=== PATIENT | female | born 1970 | race Caucasian/White ===

== ENCOUNTER 2018-10-28 20:43 | Emergency (ER) | payer BC ==
--- OUTSIDE RECORDS SUMMARY | 2018-10-28 20:57 | XMS REPORT | Continuity of Care Document ---
:1970 External Reference #:[id number] Author Name Carissa Red MD Address [address] [place] [address] Care Team Providers Name Role Phone Carissa Red MD Care Team Information Button Maker Unavailable Carissa Red MD Primary Care Physician Unavailable Payers Date Identification Numbers Payment Provider Subscriber Policy Number: [id number] [facility] Kamla Espinal PayID: [id number] [address] [address] [place] [address] Expires: 2016 Policy Number: [id number] [facility] Kamla Espinal Onset: 2013 PayID: [id number] [address] [address] [place] [address] Advance Directives Description No Information Available Problems Date Description Provider Status Onset: 10/18/2010 Lateral epicondylitis Gorge Warren MD Active Onset: 08/19/2011 Epidermoid cyst Brian Donaldson MD Active Note: I&D done for infected cyst right earlobe Onset: 04/10/2012 Lumbar sprain Gorge Warren MD Active Onset: 06/20/2011 Single major depressive episode Clara Rucker FNP Active Onset: 06/20/2011 Irritable bowel syndrome Clara Rucker FNP Active Onset: 06/20/2011 Malaise and fatigue Clara Rucker FNP Active Onset: 06/20/2011 Female stress incontinence Clara Rucker FNP Active Onset: 05/10/2016 Diarrhea Waldemar Donaldson MD Active Onset: 05/10/2016 Tenderness of epigastrium Waldemar Donaldson MD Active Onset: 05/10/2016 Heartburn Waldemar Donaldson MD Active Onset: 07/17/2016 Chronic fatigue syndrome Carissa Red MD Active Onset: 07/17/2016 Spondylolysis Carissa Red MD Active Onset: 11/06/2016 Midline cystocele Reed Marmolejo M.D. Active Onset: 11/06/2016 Herniation of rectum into vagina Reed Marmolejo M.D. Active Onset: 03/20/2017 Spondylolysis Carissa Red MD Active Onset: 04/25/2017 Nausea and vomiting Waldemar Donaldson MD Active Onset: 05/06/2017 Kidney stone Bertha Prado M.D. Active Onset: 05/06/2017 Angiomyolipoma of kidney Bertha Prado M.D. Active Onset: 08/20/2017 Disorder of shoulder Jessica Patiño MD Active Onset: 08/21/2017 Supraspinatus tear Jessica Patiño MD Active Onset: 04/02/2018 Psoriasis with arthropathy Carissa Red MD Active Onset: 04/13/2018 Benign neoplasm of skin of trunk Refugio Marroquin Active M.D. Family History Date Family Member(s) Observation Comments Father Depression Mother Pacemaker Mother Gastroparesis Mother Rheumatoid Arthritis Mother hypoglycemic Children 2 AGE 25 ANXIETY AND IBS, AGE 17 POST CONCUSSION SYNDROME First Son Anxiety First Son Reflux First Daughter Anxiety First Daughter vascualar hypotension First Brother Alcoholism First Brother Drug Addiction First Brother Gastroesophageal Reflux Disease (GERD) Grandmother Breast Cancer Grandmother Stroke Social History Type Date Description Comments Sex Unknown Marital Status Patient is Lives With Children Home Environment Lives With son Diet Patient is on a gluten-free diet Occupation [employer], 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 Tobacco Use Start: Unknown currently smokes 1/2 Pack Daily Smoking Status Reviewed: 10/01/18 currently smokes 1/2 Pack Daily ETOH Use Rarely consumes alcohol Tobacco Use Start: Unknown Heavy tobacco smoker (more than 10 cigarettes/day) Recreational Drug Use Never Used Drugs Allergies, Adverse Reactions, Alerts Date Description Reaction Status Severity Comments 10/18/2010 Doxycycline Active Vomitting 01/12/2015 Gluten Active 05/10/2016 Lemon Active 05/10/2016 [place] Quil Active 10/11/2009 NKDA Inactive 12/04/2012 Lemon rash/hives Inactive 07/25/2014 Codeine Inactive Medications Medication Date Status Form Strength Qnty SIG Indications Ordering Provider Chantix 10/02/19 Active Tablets 0.5mg X 60tab 0.5 mg Teofilo, Starting Month 19 11 & 1 mg s once MD Carissa Ethan X 42 daily days 1-3, 0.5mg twice daily days 4-7, 1mg twice daily on day 8 Fluoxetine HCL 10/02/19 Active Tablets 10mg 30tab 1 tab by Teofilo, 19 s mouth MD Carissa daily Omeprazole 09/26/19 Active Capsules 20mg 60cap [address] s mouth Refugio every HNoemi Amaya. other day Celecoxib 07/17/19 Active Capsules 100mg 180ca 2 tabs Cara, 17 ps by mouth Refugio daily H., MMoniqueD. Cholestyramine 08/16/19 Active Packet 4gm 60uni 1 packet Gene, 14 ts when seamus Berry MD,FACS fatty meal Dicyclomine HCL 06/11/20 Active Capsules 10mg 540ca 1-2 cap Cara, 11 ps by mouth Refugio three H., MMoniqueDMonique times a day after meals as needed Gabapentin Active Tablets 600mg 180ta 1 tab Teofilo, 00 bs one MD Carissa times daily Xanax Active Tablets 1mg 1 tab po Unknown 00 qd prn Methylprednisol Active Tablets 4mg as Unknown one 00 directed prn back pain Fluocinonide-E Active Cream 0.05% 30gm apply to Unknown 00 affected area as directed prn Oxycodone-Aceta Active Tablets 5-325mg 90tab 1 by Teofilo, minophen 00 s allen Ferrer MD every 8 hours as needed pain Folic Acid Active Tablets 1mg 1tab Rayancha, 00 daily MD Nirali Methotrexate Active Tablets 2.5mg 6tabs Boucher, 00 every Humble Brady y Mayriguilherme DS 04/22/20 Hx Tablets 800-160mg 20tab 1 by Cara, 18 - s mouth Christopher 06/11/20 twice a H., Dennis 18 day Diflucan 04/20/20 Hx Tablets 150mg 7tabs 1 by Cara 18 - mouth Christopher 06/11/20 every H.Noemi. 18 day Baclofen 04/02/20 Hx Tablets 5mg 90tab 1 tab by Hai, 18 - s mouth Jil, 06/25/20 three MS, DIRECTOR OF MARKET INTELLIGENCE-C, 18 times a CNM day Sulfamethoxazol 10/02/19 Hx Tablets 800-160mg 10tab 1 by Cara e/Trimethoprim 18 - s mouth Christopher DS 04/02/20 twice a H., Dennis 18 day Chantix 07/09/19 Hx Tablets 0.5mg X 1tabs use as Cara Starting Month 18 - 11 & 1 mg directed Lucophmelba Ethan 08/20/19 X 42 H., SofiD. 18 Dulcolax 04/25/20 Hx Tablets 5mg 4tabs 4 R19.7 Waldemar Donaldson 17 - DR tablets 08/20/19 taken a 18 8pm the day before the procedur e Citroma 04/25/20 Hx Solution 1.745GM/3 1unit 1 bottle R19.7 Waldemar Donaldson 17 - 0ML s by mouth 08/20/19 once 18 Clindamycin 04/10/20 Hx Lotion 1% 60ml twice a Cara Phosphate 17 - day Lucopher 04/02/20 apply HDennis Amaya 18 topicall y to the affected areas Oxybutynin 03/20/20 Hx Tablets 5mg 30tab 1 by Teofilo, Chloride ER 17 - ER 24HR s mouth MD Carissa Unknown every day Enoxaparin 02/19/20 Hx Solution 40mg/0.4M 12ml 40mg / Cara, Sodium 17 - L 0.4ml Refugio Unknown subq HDennis Amaya daily Ibuprofen 02/04/20 Hx Tablets 800mg 60tab 1 by Cara 17 - s mouth Christopher Unknown every 6 H.Dennis hours as needed for pain use as first line pain control Zantac 01/10/20 Hx Tablets 150mg 60tab 1 by Cara 17 - s mouth Refugio Unknown twice a H., M.D. day Fluoxetine HCL 10/09/19 Hx Tablets 10mg 90tab 1 tab po Teofilo, 17 - s Daily MD Carissa Unknown Xifaxan 09/05/19 Hx Tablets 550mg 42tab 1 tab by K58.0 Waldemar Donaldson 17 - s allen JUDGE 12/19/19 three 17 times a day Omeprazole 08/29/19 Hx Capsules 40mg 180ca 1 by Cara 17 - DR ps mouth Refugio Unknown twice a H., M.D. day Vitamin D3 07/17/19 Hx Capsules 2000Unit 2 PO Teofilo, Super Strength 17 - daily MD Carissa Unknown Percocet 05/27/20 Hx Tablets 5-325mg 40tab take 1 Teofilo, 16 - s tablets MD Carissa 12/19/19 every 17 six hours as needed for pain Zofran 05/10/20 Hx Tablets 4mg 30tab 1 by R19.7 Waldemar Donaldson 16 - s mouth Unknown every day Zantac 150 05/10/20 Hx Tablets 150mg 30tab 1 cap by R10.816 Waldemar Donaldson, Maximum 16 - s mouth Strength Unknown every day Colestid 05/10/20 Hx Tablets 1gm 90tab 1 tab by Waldemar Donaldson 16 - s mouth Unknown three times a day meals Paregoric 04/18/20 Hx Tincture 2mg/5ML 473ml 5ml po Cara 16 - tid prn Refugio Unknown H., MMoniqueD. Detrol LA 03/11/20 Hx Caps ER 4mg 90cap 1 by Teofilo, 16 - 24HR s mouth MD Carissa 03/20/20 every 17 day Ibuprofen 03/11/20 Hx Tablets 800mg 60tab takes 2 Teofilo, 16 - s tabs by MD Carissa Unknown mouth daily prn Prozac 02/22/20 Hx Capsules 10mg 60cap take 1 Teofilo, 16 - s pill MD Carissa 02/22/20 each day 16 Metoprolol 02/22/20 Hx Tablets 25mg 180ta 1 by Teofilo, Tartrate 16 - bs mouth a MD Carissa Unknown day Fluoxetine HCL 02/22/20 Hx Tablets 10mg 30tab 1 po qod Teofilo, 16 - s MD Carissa 07/19/19 17 Hyoscyamine 12/07/19 Hx Tablets 0.125mg 60tab take one Moheimani, Sulfate 16 - s to two Christopher Unknown times a H., M.D. day as needed Hyoscyamine 10/12/19 Hx Tablets 0.125mg 60tab Take one Moheimani, Sulfate 16 - s to two Christopher 02/22/20 times a H., M.D. 16 day as needed Cyclobenzaprine 07/12/19 Hx Tablets 10mg 60tab 1 by Cruz, PABLO 15 - s mouth Bear Perry, 07/17/19 three EARL JUDGE 17 times a day as needed muscle spasms Cholestyramine 08/11/19 Hx Powder 100gm one cap Cara 14 - or Christopher 08/16/19 heaping Dennis Pedro 14 teaspoon full as directed in fluid once to twice a day when you have diarrhea . Nabumetone 05/07/20 Hx Tablets 750mg 60tab take 1 Kelvin, 12 - s tablet Gorge A., Unknown by mouth 2 times a day Cephalexin 08/19/19 Hx Capsules 500mg 20cap 1 tab po Brian Donaldson 12 - s qid pc MD Toñito Unknown Alprazolam 06/11/20 Hx Tablets 0.5mg 90tab 1 po tid Smith 11 - s prn Lucretia, 02/22/20 16 Oxycodone/Aceta 03/29/20 Hx Tablets 5-325 10tab one q4h Brian Donaldson minophen 11 - s prn carol Sibley MD Unknown Nabumetone 10/19/19 Hx Tablets 750mg 60tab take 1 Kelvin, 11 - s tablet Gorge A., Unknown by mouth 2 times a day Detrol LA Hx Caps ER 4mg 1 po qd Vandana, 00 - 24HR Nbarocky Farah, 10/18/19 Dennis, FACC 11 Zoloft Hx Tablets 50mg 1 po qd Vandana 00 - Nba MMonique, 10/18/19 Dennis, [facility] 11 Prevacid Hx Capsules 30mg 1 po qd Vandana 00 - DR Nba Farah, 10/18/19 Dennis, [facility] 11 Dicyclomine HCL Hx Capsules 10mg as prn Unknown 00 - Unknown Vitamin C Hx Tablets 1000mg 1 po qd Unknown 00 - Unknown Calcium + D Hx Tablets 600-200mg po qd Unknown - -Unit Unknown Ibuprofen Hx Tablets 800mg 20tab po qd Unknown 00 - s prn 07/12/19 15 Omeprazole Hx Capsules 40mg 60cap 1 po qd Unknown - s Unknown Vesicare Hx Tablets 5mg 30tab 1 po qd Smith - s Lucretia, 02/22/20 16 Ranitidine Acid Hx Tablets 75mg take one Unknown [employer] Specialist 00 - tablet 08/29/19 by mouth 17 bid Arava Hx Tablets 10mg One a Unknown 00 - day 08/20/19 18 Methotrexate Hx Tablets 2.5mg 5 pills Boucher, 00 - PO Q Humble JUDGE 06/25/20Frinesda 18 y Probiotic Hx Capsules 1 by Unknown 00 - mouth 06/11/20 every 18 day Medications Administered in Office Medication Date Status Form Strength Qnty SIG Indications Ordering Provider Methylprednisolo 09/05 Administered Injection Cerrato, Cyndi Encinas (Depomedrol) RPAC 80mg injection Depomedrol 04/26 Administered Injection Lawsing, 40mg/1cc Bear Perry (methylprednisol , [facility] one acetate) Depomedrol 04/26 Administered Injection Cerrato, 40mg/1cc Cyndi Encinas (methylprednisol RPAC one acetate) Depomedrol 04/26 Administered Injection Cerrato, 40mg/1cc Cyndi Encinas, (methylprednisol RPAC one acetate) Depomedrol 09/10 Administered Injection Cerrato, 40mg/1cc Cyndi Encinas (methylprednisol RPAC one acetate) Depomedrol 05/07 Administered Injection Moheimani, 40mg/1cc /Ulises Huff (methylprednisol H., M.D. one acetate) Depomedrol 12/04 Administered Injection DavidEloy 40mg/1cc /Ulises Pedro MD (methylprednisol one acetate) Immunizations CPT Code Status Date Vaccine Lot # [id number] Given 10/01/2018 Tdap injection [id number] Given 04/02/2018 Pneumococcal Conjugate Vaccine 13 Valent For [id number] Intramuscular Use Vital Signs Date Vital Result Comment 10/01/2018 8:40am BP Systolic Sitting Left Arm 104 mmHg BP Diastolic Sitting Left Arm 74 mmHg Body Temperature 97.8 F Heart Rate 87 /min Respiratory Rate 16 /min Height 69 inches 5'9" Weight 203.00 lb BMI (Body Mass Index) 30.0 kg/m2 BSA (Body Surface Area) 2.08 m2 [place] body weight in kilograms 66 kg O2 % BldC Oximetry 98 % Ra 06/11/2018 4:12pm BP Systolic Sitting Right Arm 126 mmHg BP Diastolic Sitting Right Arm 76 mmHg Body Temperature 98.6 F Heart Rate 73 /min Respiratory Rate 16 /min Height 69 inches 5'9" Weight 196.00 lb per pt BMI (Body Mass Index) 28.9 kg/m2 BSA (Body Surface Area) 2.05 m2 [place] body weight in kilograms 66 kg O2 % BldC Oximetry 96 % Ra 04/02/2018 8:32am BP Systolic 130 mmHg Fabrice 118/82 BP Diastolic 92 mmHg Fabrice 118/82 Body Temperature 98.1 F Heart Rate 89 /min Respiratory Rate 18 /min Height 69 inches 5'9" Weight 195.00 lb BMI (Body Mass Index) 28.8 kg/m2 BSA (Body Surface Area) 2.04 m2 [place] body weight in kilograms 66 kg O2 % BldC Oximetry 98 % 10/01/2017 1:02pm BP Systolic 125 mmHg BP Diastolic 80 mmHg Body Temperature 72.0 F Heart Rate 973 /min Height 69 inches 5'9" Weight 184.00 lb BMI (Body Mass Index) 27.2 kg/m2 BSA (Body Surface Area) 1.99 m2 [place] body weight in kilograms 66 kg Pain Level 5 09/05/2017 2:17pm BP Systolic Sitting Left Arm 123 mmHg BP Diastolic Sitting Left Arm 74 mmHg Heart Rate 91 /min Height 69 inches 5'9" Weight 189.00 lb BMI (Body Mass Index) 27.9 kg/m2 BSA (Body Surface Area) 2.02 m2 [place] body weight in kilograms 66 kg 08/20/2017 9:21am BP Systolic Sitting Right Arm 109 mmHg BP Diastolic Sitting Right Arm 72 mmHg Heart Rate 79 /min Height 69 inches 5'9" Weight 198.00 lb BMI (Body Mass Index) 29.2 kg/m2 BSA (Body Surface Area) 2.06 m2 [place] body weight in kilograms 66 kg 05/06/2017 3:54pm BP Systolic 138 mmHg BP Diastolic 85 mmHg Body Temperature 97.5 F Heart Rate 85 /min Respiratory Rate 16 /min Height 69 inches 5'9" Weight 218.00 lb BMI (Body Mass Index) 32.2 kg/m2 BSA (Body Surface Area) 2.14 m2 [place] body weight in kilograms 66 kg O2 % BldC Oximetry 98 % Pain Level 0 04/25/2017 3:52pm BP Systolic Sitting Left Arm 124 mmHg BP Diastolic Sitting Left Arm 78 mmHg Heart Rate 72 /min Respiratory Rate 16 /min Height 69 inches 5'9" Weight 215.00 lb BMI (Body Mass Index) 31.7 kg/m2 BSA (Body Surface Area) 2.13 m2 [place] body weight in kilograms 66 kg 03/20/2017 1:53pm BP Systolic Lying Down Resting Right Arm 128 mmHg BP Diastolic Lying Down Resting Right Arm 74 mmHg Heart Rate 84 /min Height 69 inches 5'9" Weight 210.00 lb BMI (Body Mass Index) 31.0 kg/m2 BSA (Body Surface Area) 2.11 m2 [place] body weight in kilograms 66 kg 11/06/2016 2:56pm BP Systolic 130 mmHg BP Diastolic 84 mmHg Height 69 inches 5'9" Weight 212.00 lb BMI (Body Mass Index) 31.3 kg/m2 BSA (Body Surface Area) 2.12 m2 [place] body weight in kilograms 66 kg 09/04/2016 3:39pm BP Systolic Sitting Left Arm 134 mmHg BP Diastolic Sitting Left Arm 86 mmHg Heart Rate 82 /min Respiratory Rate 16 /min Height 69 inches 5'9" Weight 224.00 lb BMI (Body Mass Index) 33.1 kg/m2 BSA (Body Surface Area) 2.17 m2 08/28/2016 1:00pm BP Systolic 120 mmHg BP Diastolic 84 mmHg Height 69 inches 5'9" Weight 219.00 lb BMI (Body Mass Index) 32.3 kg/m2 BSA (Body Surface Area) 2.15 m2 [place] body weight in kilograms 66 kg 08/23/2016 1:58pm BP Systolic Sitting Right Arm 128 mmHg BP Diastolic Sitting Right Arm 76 mmHg Height 67 inches 5'7" Weight 223.25 lb BMI (Body Mass Index) 35.0 kg/m2 BSA (Body Surface Area) 2.12 m2 07/17/2016 11:20am BP Systolic 142 mmHg BP Diastolic 94 mmHg Heart Rate 68 /min Height 67 inches 5'7" Weight 226.00 lb BMI (Body Mass Index) 35.4 kg/m2 BSA (Body Surface Area) 2.13 m2 05/10/2016 8:27am BP Systolic Sitting Left Arm 118 mmHg BP Diastolic Sitting Left Arm 86 mmHg Heart Rate 81 /min Respiratory Rate 16 /min Height 67 inches 5'7" Weight 224.00 lb BMI (Body Mass Index) 35.1 kg/m2 BSA (Body Surface Area) 2.12 m2 02/22/2016 1:35pm BP Systolic Sitting Right Arm 122 mmHg BP Diastolic Sitting Right Arm 70 mmHg Height 67 inches 5'7" Weight 223.00 lb BMI (Body Mass Index) 34.9 kg/m2 BSA (Body Surface Area) 2.12 m2 12/27/2014 2:13pm BP Systolic Sitting Left Arm 109 mmHg BP Diastolic Sitting Left Arm 71 mmHg Heart Rate 83 /min Height 67 inches 5'7" Weight 217.00 lb BMI (Body Mass Index) 34.0 kg/m2 BSA (Body Surface Area) 2.09 m2 09/10/2013 9:13am BP Systolic Sitting Right Arm 120 mmHg BP Diastolic Sitting Right Arm 82 mmHg Height 69 inches 5'9" Weight 212.00 lb per patient BMI (Body Mass Index) 31.3 kg/m2 BSA (Body Surface Area) 2.12 m2 12/04/2012 2:17pm BP Systolic Sitting Right Arm 117 mmHg BP Diastolic Sitting Right Arm 72 mmHg Height 69 inches 5'9" Weight 208.00 lb BMI (Body Mass Index) 30.7 kg/m2 BSA (Body Surface Area) 2.10 m2 04/10/2012 2:28pm BP Systolic Sitting Right Arm 118 mmHg BP Diastolic Sitting Right Arm 68 mmHg Height 69 inches 5'9" Weight 208.00 lb BMI (Body Mass Index) 30.7 kg/m2 11/26/2011 11:12am BP Systolic 122 mmHg BP Diastolic 72 mmHg Height 69 inches 5'9" Weight 214.00 lb 11/01/2011 9:41am BP Systolic 102 mmHg BP Diastolic 78 mmHg Height 69 inches 5'9" Weight 213.00 lb 10/15/2011 11:39am BP Systolic 124 mmHg BP Diastolic 68 mmHg Body Temperature 98.8 F Height 69 inches 5'9" Weight 212.00 lb 06/11/2011 11:31am BP Systolic 104 mmHg BP Diastolic 86 mmHg Height 69 inches 5'9" Weight 200.00 lb 03/29/2011 2:28pm Body Temperature 97.6 F Height 69.5 inches 5'9.50" Weight 195.00 lb BMI (Body Mass Index) 28.4 kg/m2 10/18/2010 10:31am Height 69.5 inches 5'9.50" Weight 200.00 lb BMI (Body Mass Index) 29.1 kg/m2 Results Test Date Facility Test Result H/L Range Note Laboratory test 06/22/2018 [facility] Thyroid Stim 1.87 uIU/mL N 0.30-4.[address] [place] [address] [phone] Free T4 0.92 ng/dL N 0.76-1.46 Vitamin B12 408 pg/mL N 193-986 Laboratory test 05/29/2018 [facility] Vitamin 32.7 30.0-100.0 2, [address] D,25-Hydroxy ng/[place] [address] [phone] LDL Cholesterol 05/29/2018 [facility] Cholesterol 145 <200 [address] mg/[place] [address] [phone] Triglycerides 72 mg/dL <150 5 HDL Cholesterol 64 mg/dL >40 6 LDL-Cholesterol 67 mg/dL < 100 7 Glycohemoglobin A1c 05/29/2018 [facility] Glycohemoglobin 5.4 % N 4.2-6.[address] (A1c) [place] [address] [phone] eAG 108 mg/dL Comprehensive Metabolic 05/29/2018 [facility] Glucose 93 mg/dL N 74-[address] [place] [address] [phone] BUN 19 mg/dL High 7-18 Creatinine 0.8 mg/dL N 0.6-1.3 Glom Filtration Rate, Estimate >60 mL/min >60 If >60 mL/min >60 9 BUN/Creat 23.7 ratio Sodium 139 mmol/L N 136-145 Potassium 4.8 mmol/L N 3.5-5.1 Chloride 107 mmol/L N 98-107 Carbon Dioxide 28 mmol/L N 21-32 Anion Gap 4 mEq/L Low 8-16 Calcium 8.0 mg/dL Low 8.5-10.1 Total Protein 7.2 g/dL N 6.4-8.2 Albumin 3.4 g/dL N 3.4-5.0 Globulin 3.8 g/dL N 1.9-4.3 Alb/Glob 0.9 ratio Bilirubin,Total 0.5 mg/dL N 0.2-1.0 Sgot/Ast 11 U/L Low 15-37 10 SGPT/Alt 25 U/L N 12-78 Alkaline Phosphatase 61 U/L N 45-117 CBC W/Automated 05/29/2018 [facility] White Blood 11.0 K/uL High 3.1-10.[address] [place] [address] [phone] Red Blood Count 4.78 M/uL N 3.90-5.40 Hemoglobin 15.2 gm/dL N 11.6-15.8 Hematocrit 46.3 % High 36.0-46.1 Mean Cell Volume 96.9 fl N 80.9-99.0 Mean Corpuscular HGB 31.8 pg N 25.9-32.7 Mean Corpuscular HGB Conc 32.8 g/dL N 30.8-34.3 Platelet Count 305 K/uL N 155-360 Red Cell Distri Width SD 49.0 fl High 3-47 Red Cell Distri Width %CV 14.3 % N 11.7-14.4 Mean Platelet Volume 10.4 fL N 8.9-12.4 Neut% 74.7 % High 40.4-72.8 Lymph % 18.0 % Low 20.0-42.0 [place] % 5.5 % N 4.3-13.2 Eo% 1.5 % N 0.0-6.6 Bas% 0.3 % N 0.0-1.1 Neut# 8.23 K/uL High 1.8-7.0 Lymph # 1.98 K/uL N 1.0-4.0 [place] # 0.61 K/uL N 0.3-0.9 Eos # 0.16 K/uL N 0.0-0.5 Baso # 0.03 K/uL N 0.0-0.1 Slide Review 05/29/2018 [facility] Slide Review (SEE NOTE) [address] [place] [address] [phone] Vasoactive 05/12/2017 [facility] Vasoactive 20.7 pg/mL 0.0-5 12, [address] Intestinal 8.8 [place] [address] Polypept [phone] Basic Metabolic 05/12/2017 [facility] Glucose 82 mg/dL N 74-[address] [place] [address] [phone] BUN 13 mg/dL N 7-18 Creatinine 0.9 mg/dL N 0.6-1.3 Glom Filtration Rate, Estimate >60 mL/min >60 If >60 mL/min >60 14 BUN/Creat 14.4 ratio Sodium 139 mmol/L N 136-145 Potassium 4.0 mmol/L N 3.5-5.1 Chloride 106 mmol/L N 98-107 Carbon Dioxide 27 mmol/L N 21-32 Anion Gap 6 mEq/L Low 8-16 Calcium 9.2 mg/dL N 8.5-10.1 5-Hiaa,Quant 24 HR 05/11/2017 [facility] 5-Hiaa, Urine 3.8 mg/L Undefined Urine [address] [place] [address] [phone] 5-Hiaa, Urine, 24 HR 3.7 mg/24hr 0.0-14.9 15 Laboratory test 03/25/2017 [facility] Carbohydrate 7.0 U/mL 0-35 16, [address] Antigen 19-9 [place] [address] [phone] Cancer Antigen (CA) 125 10.4 U/mL 0.0-38.1 18 Cea 2.7 ng/mL 19 Xray 02/12/2017 [facility] - Radiology Venous Doppler started hep [address] Lower [place] [address] Left [phone] Laboratory test 05/13/2016 [facility] C-Reactive 3.48 mg/L N <3.0 [address] Protein,[place] [address] [phone] Sedimentation Rate 2 mm/hr N 0-20 Laboratory test 05/12/2016 [facility] Pancreatic 298.0 ug/g N >200 [address] Elastase (Pe-1) [place] [address] [phone] Calprotectin, Fecal 49 ug/g N 0-120 22 Lactoferrin, Stool Quant 5.54 ug/mL(g) N 0.00-7.24 23 Laboratory test 05/12/2016 [facility] C. Difficile NEGATIVE FOR [address] Toxin A/B C. <[place] [address] NOTE> [phone] Ova & Parasite 05/12/2016 [facility] Parasite NO OVA AND [address] Concentrate Exam BHARATI <[place] [address] NOTE> [phone] Permanent Trichrome Stain NO OVA OR PARASI <SEE NOTE> 26 Cryptosporidium by Dfa NEGATIVE for Cry <SEE NOTE> 27 Stool Culture 05/12/2016 [facility] Stool Culture NO ENTERIC PATHO [address] <SEE NOTE> [place] [address] [phone] . ................ <SEE NOTE> N 29 Note: INCLUDES TESTING <SEE NOTE> N 30 . PLESIOMONAS, CAM <SEE NOTE> N 31 . ................ <SEE NOTE> N 32 . YERSINIA AND VIB <SEE NOTE> N 33 . SHOULD BE REQUES <SEE NOTE> N 34 Shiga Toxin 1 Antigen SHIGA TOXIN 1 NO <SEE NOTE> 35 Shiga Toxin 2 Antigen SHIGA TOXIN 2 NO <SEE NOTE> 36 Fecal Fat, Qualitative 05/12/2016 [facility] Fats, Neutral Normal N . [address] [place] [address] [phone] Fats, Total Normal N . 38 CBS W/Automated 02/22/2016 [facility] White Blood 11.4 K/uL High 3.1-10.7 [address] [place] [address] [phone] Red Blood Count 4.89 M/uL N 3.90-5.40 Hemoglobin 15.1 gm/dL N 11.6-15.8 Hematocrit 45.1 % N 36.0-46.1 Mean Cell Volume 92.2 fl N 80.9-99.0 Mean Corpuscular HGB 30.9 pg N 25.9-32.7 Mean Corpuscular HGB Conc 33.5 g/dL N 30.8-34.3 Platelet Count 339 K/uL N 155-360 Red Cell Distri Width SD 45.0 fl N 3-47 Red Cell Distri Width %CV 13.5 % N 11.7-14.4 Mean Platelet Volume 11.9 fL N 8.9-12.4 Neut% 66.5 % N 40.4-72.8 Lymph % 24.1 % N 17.0-46.1 [place] % 7.3 % N 4.3-13.2 Eo% 1.8 % N 0.0-6.6 Bas% 0.3 % N 0.0-1.1 Neut# 7.59 K/uL High 1.8-7.0 Lymph # 2.75 K/uL N 1.8-7.0 [place] # 0.83 K/uL N 0.3-0.9 Eos # 0.20 K/uL N 0.0-0.5 Baso # 0.03 K/uL N 0.0-0.1 @EMR Pat Id: [id number] @[facility] Req #: [id number] Slide Review 02/22/2016 [facility] Slide Review . N [address] [place], [place] [address] [phone] @EMR Pat Id: [id number] @[facility] Req #: [id number] Iron-Tibc-%Sat 02/22/2016 [facility] Serum Iron 50 g/dL N 50-170 [address] [place] [address] [phone] Total Iron Binding Capacity 312 g/dL N 250-450 Transferrin %Saturation 16 % N 12-57 @EMR Pat Id: [id number] @[facility] Req #: [id number] Is Patient Fasting? Unknown Ferritin 02/22/2016 [facility] Ferritin 67 ng/mL N 8-[address] [place] [address] [phone] @[facility] Pat Id: [id number] @[facility] Req #: [id number] Is Patient Fasting? Unknown Thyroid Stim 02/22/2016 [facility] Thyroid Stim 1.70 uIU/mL N 0.30-4.[address] [place] [address] [phone] @[facility] Pat Id: [id number] @[facility] Req #: [id number] Is Patient Fasting? Unknown Free T4 02/22/2016 [facility] Free T4 1.09 ng/dL N 0.76-1.[address] [place] [place] [address] [phone] @[facility] Pat Id: [id number] @[facility] Req #: [id number] Is Patient Fasting? Unknown Rheumatoid 02/22/2016 [facility] Rheumatoid < 10.0 N 0.0-15.0 Factor Screen [address] Factor Screen IU/[place] [address] [phone] @[facility] Pat Id: [id number] @[facility] Req #: [id number] Is Patient Fasting? Unknown Vitamin 02/22/2016 [facility] Vitamin 32.3 N 30.0-100.0 41 D,25-Hydroxy [address] D,25-Hydroxy ng/[place] [address] [phone] @[facility] Pat Id: [id number] @[facility] Req #: [id number] [facility] Igg/Iga 02/22/2016 [facility] Igg/Iga 8 units N 0-19 [address] [place] [address] [phone] @[facility] Pat Id: [id number] @[facility] Req #: [id number] Anti-Nuclear 02/22/2016 [facility] Anti-Nuclear Negative N Negative [address] Antibodies AU/[place] [address] Direct [phone] @[facility] Pat Id: [id number] @[facility] Req #: [id number] Comprehensive Metabolic 11/28/2015 [facility] Glucose 99 mg/dL 74-106 Panel [address] [place] [address] [phone] BUN 16 mg/dL 7-18 Creatinine 0.9 mg/dL 0.6-1.3 Glom Filtration Rate, Estimate >60 mL/min >60 If >60 mL/min >60 44 BUN/Creat 17.7 ratio Sodium 137 mmol/L 136-145 Potassium 3.9 mmol/L 3.5-5.1 Chloride 106 mmol/L 98-107 Carbon Dioxide 25 mmol/L 21-32 Anion Gap 6 mEq/L Low 8-16 Calcium 7.6 mg/dL Low 8.5-10.1 Total Protein 6.8 g/dL 6.4-8.2 Albumin 3.4 g/dL 3.4-5.0 Globulin 3.4 g/dL 1.9-4.3 Alb/Glob 1.0 ratio Bilirubin,Total 0.4 mg/dL 0.2-1.0 Sgot/Ast 12 U/L Low 15-37 45 SGPT/Alt 24 U/L 12-78 Alkaline Phosphatase 57 U/L 45-117 Laboratory test 11/28/2015 [facility] Sedimentation Rate 10 mm/hr 0-20 finding [address] [place] [address] [phone] Vitamin B12 425 pg/mL [phone] 46 C-Reactive Protein,Quant 5.2 mg/L High <3.0 H Pylori, Igm, 09/20/2015 [facility] Helicobacter <0.9 U/mL 0.0-0.8 47 Igg, Iga AB 134 [facility] P[facility], [place] [address] [phone] Helicobacter Pylori, Iga Abs < 9.0 units 0.0-8.9 48 Helicobacter Pylori, Igm Abs < 9.0 units 0.0-8.9 49 Laboratory test 08/16/2015 [facility] Gallbladder See Note 50 finding [address] [place] [address] [phone] Laboratory test 08/11/2015 N2N/CCD Import Miscellaneous Test Test(s) finding Comment added Laboratory test 08/11/2015 N2N/CCD Import Alanine 23 12-7 finding Aminotransferase 8 (Alt/SGPT) Albumin 3.5 3.4-5.0 Albumin/Globulin Ratio 1.0 Alkaline Phosphatase 61 45-117 Anion Gap 5 Low 8-16 Aspartate Amino Transf (Ast/Sgot) 9 Low 15-37 BUN/Creatinine Ratio 17.5 Basophils # (Auto) 0.03 0.0-0.1 Basophils (%) (Auto) 0.2 0.0-1.1 Blood Urea Nitrogen 14 7-18 Calcium Level 7.8 Low 8.5-10.1 Carbon Dioxide Level 26 21-32 Chloride Level 107 98-107 Creatinine 0.8 0.6-1.3 Eosinophils # (Auto) 0.16 0.0-0.5 Eosinophils (%) (Auto) 1.2 0.0-6.6 Globulin 3.5 1.9-4.3 Glucose Screen 96 74-106 Hematocrit 45.5 36.0-46.1 Hemoglobin 15.4 11.6-15.8 Lipase 132 73-393 Lymphocytes # (Auto) 2.97 1.8-7.0 Lymphocytes (%) (Auto) 22.1 17.0-46.1 Manual Slide Review (Hematology) . Mean Corpuscular Hemoglobin 31.2 25.9-32.7 Mean Corpuscular Hemoglobin Concent 33.8 30.8-34.3 Mean Corpuscular Volume 92.1 80.9-99.0 Mean Platelet Volume 11.5 8.9-12.4 Monocytes # (Auto) 0.95 High 0.3-0.9 Monocytes (%) (Auto) 7.1 4.3-13.2 Neutrophils # (Auto) 9.31 High 1.8-7.0 Neutrophils (%) (Auto) 69.4 40.4-72.8 Platelet Count 304 155-360 Potassium Level 4.1 3.5-5.1 RDW Coefficient of Variation 13.5 11.7-14.4 Red Blood Count 4.94 3.90-5.40 Red Cell Distribution Width 44.7 3-47 Sodium Level 138 136-145 Total Bilirubin 0.2 0.2-1.0 Total Creatine Kinase 64 26-192 Total Protein 7.0 6.4-8.2 White Blood Count 13.4 High 3.1-10.7 Laboratory test finding 05/16/2015 N2N/CCD Import Anti-Double Strand Dna 2 0-9 Antibody C-Reactive Protein, Quantitative 6.6 High <3.0 Erythrocyte Sedimentation Rate 4 0-20 Estimated Average Glucose (eAG) 111 Hemoglobin A1c 5.5 4.2-6.3 Rheumatoid Factor 8.0 0.0-13.9 Laboratory test 04/07/2015 [facility] Eyelid BX See Note 51, 52 finding [address] [place] [address] [phone] Laboratory test 11/25/2013 [facility] Lyme AB/Total < 0.91 0.[address] Immunoglobulins index -0.9 [place] [address] 0 [phone] Sedimentation Rate 6 mm/hr 0-20 Rheumatoid Factor Screen NEGATIVE Negative Systemic Lupus 11/25/2013 [facility] Ra Latex 7.4 IU/mL 0.0-13.9 Erythem. Profil [address] [place] [address] [phone] Anti-Dna Antibody ([place]) 2 IU/mL 0-9 54 SM Antibody <0.2 AI 0.0-0.9 IMPLEMENTATION ANALYST Antibody <0.2 AI 0.0-0.9 Sjogrens Antibodies (Ssa) <0.2 AI 0.0-0.9 Antichromatin Antibodies <0.2 AI 0.0-0.9 Sjogrens Antibodies (SSB) <0.2 AI 0.0-0.9 Laboratory test 11/25/2013 [facility] C-Reactive < 2.9 0.0-4.9 finding 134 [facility] Protein,Quant mg/[place] [address] [phone] Comprehensive 01/01/2013 [facility] Glucose 88 mg/dL 76-115 Metabolic Panel [address] [place], [place] [id number] [phone] BUN 16 mg/dL 5-23 Creatinine 0.9 mg/dL 0.5-1.4 Glom Filtration Rate, Estimate >60 mL/min >60 If >60 mL/min >60 55 BUN/Creat 17.7 ratio Sodium 140 mmol/L 136-145 Potassium 3.8 mmol/L 3.5-5.1 Chloride 106 mmol/L 98-107 Carbon Dioxide 23 mEq/L 18-29 Anion Gap 15 mEq/L 8-16 Calcium 8.0 mg/dL Low 8.5-10.1 Total Protein 7.2 g/dL 6.3-8.0 Albumin 3.6 g/dL 3.5-5.0 Globulin 3.6 g/dL 1.9-4.3 Alb/Glob 1.0 ratio Bilirubin,Total 0.4 mg/dL 0.2-1.2 Sgot/Ast 8 U/L Low 16-40 SGPT/Alt 23 U/L Low 30-65 Alkaline Phosphatase 68 U/L 50-136 Laboratory test 01/01/2013 [facility] Thyroid Stim 3.06 uIU/mL 0.49-4.[address] [place] [address] [phone] Free T4 1.02 ng/dL 0.71-1.85 C-Reactive Protein,Quant < 2.9 mg/L 0.0-4.9 Systemic Lupus 01/01/2013 [facility] Ra Latex 4.3 IU/mL 0.0-13.9 Erythem. Profil [address] [place] [address] [phone] Anti-Dna Antibody ([place]) <1 IU/mL 0-9 56 SM Antibody <0.2 AI 0.0-0.9 IMPLEMENTATION ANALYST Antibody <0.2 AI 0.0-0.9 Sjogrens Antibodies (Ssa) <0.2 AI 0.0-0.9 Antichromatin Antibodies <0.2 AI 0.0-0.9 Sjogrens Antibodies (SSB) <0.2 AI 0.0-0.9 57 CBC 01/01/2013 [facility] White Blood Count 13.3 K/uL High 3.1-10.[address] [place] [address] [phone] Red Blood Count 4.97 M/uL 3.90-5.40 Hemoglobin 15.4 gm/dL 11.6-15.8 Hematocrit 45.8 % 36.0-46.1 Mean Cell Volume 92.2 fl 80.9-99.0 Mean Corpuscular HGB 31.0 pg 25.9-32.7 Mean Corpuscular HGB Conc 33.6 g/dL 30.8-34.3 Platelet Count 334 K/uL 155-360 Red Cell Distri Width %CV 13.5 % 11.7-14.4 Mean Platelet Volume 11.6 fL 8.9-12.4 Laboratory test 01/01/2013 [facility] Sedimentation Rate 5 mm/hr 0-20 finding 134 [place] [address] [phone] Rheumatoid Factor Screen NEGATIVE Negative Laboratory test finding 10/22/2012 [facility] BUN 18 mg/dL 5-23 [address] [place], [place] [address] [phone] Creatinine 0.9 mg/dL 0.5-1.4 Laboratory test 01/20/2012 [facility] Hla B27 Negative () 58 finding [phone] Laboratory test 01/10/2012 [facility] C Reactive < 0.5 mg/dL Less Than finding [phone] Protein 0.5 Cyclic Citrullinated Pep Igg <15.6 U () 59 Hla B27 Negative () 60 Rheumatoid Factor < 15 IU/mL <15 61 Comp Metabolic Panel 01/10/2012 [facility] Sodium 136 mmol/L 135-145 [phone] Potassium 4.5 mmol/L 3.5-5.0 Chloride 105 mmol/L 101-111 Co2 (Carbon Dioxide) 23.0 mmol/L 22-32 Anion Gap 8.0 mmol/L 2-11 62 Glucose 88 mg/dL 70-100 BUN 15 mg/dL 6-24 Creatinine 0.8 mg/dL 0.50-1.40 One Over Creatinine 1.25 BUN/Creatinine Ratio 18.8 8-20 Calcium 8.7 mg/dL 8.1-9.9 Total Protein 6.8 GM/DL 6.2-8.1 Albumin 3.9 GM/DL 3.6-5.4 Globulin 2.9 GM/DL 2-4 Albumin/Globulin Ratio 1.3 1-3 Bilirubin Total 0.7 mg/dL 0.4-1.5 63 Alkaline Phosphatase 55 U/L 30-110 Alt (SGPT) 17 U/L 14-54 Ast (Sgot) 16 U/L 12-42 eGFR Non- 78.3 > 60 eGFR 100.7 > 60 64 Laboratory test 01/10/2012 [facility] Erythrocyte Sed 3 MM/HR 0-15 finding [phone] Rate CBC With Manual 01/10/2012 [facility] White Blood 14.6 CUMM High 4.8-10.8 Diff [phone] Count Red Cell Count 4.74 CUMM 4.2-5.4 Hemoglobin 15.5 g/dL 12.0-16.0 Hematocrit 44 % 35-47 Mean Corpuscular Volume 93 um3 79-97 Mean Corpuscular Hemoglob 33 pg High 27-31 Mean Corpuscular HGB Cone 35 g/dL 32-36 Redcell Distribution WDTH 13 % 10.5-15 Platelet Count 254 CUMM 150-450 Mean Platelet Volume 10.4 um3 7.4-10.4 Absolute Neutrophil Count 11.1 High 1.5-7.7 Polysegmented Neutrophil 76 % 38-83 Lymphocyte 15 % Low 25-47 Monocyte 7 % 0-13 Eosinophil 2 % 0-6 RBC Morphology NORMAL Laboratory test 01/10/2012 [facility] Hemoglobin A1c 5.5 % Less Than 65 finding [phone] 6.0 CBC Auto Diff 10/29/2011 N2N/CCD Import Hematocrit 43 % 35-47 Hemoglobin 15.0 g/dL 12.0-16.0 Mean Corpuscular HGB Cone 35 g/dL 32-36 Mean Corpuscular Hemoglob 32 pg High 27-31 Mean Corpuscular Volume 92 um3 79-97 Mean Platelet Volume 10.9 um3 High 7.4-10.4 66 Platelet Count 255 CUMM 150-450 Red Cell Count 4.69 CUMM 4.2-5.4 Redcell Distribution WDTH 13 % 10.5-15 White Blood Count 12.5 CUMM High 4.8-10.8 Comp Metabolic Panel 10/29/2011 N2N/CCD Import Albumin 3.7 GM/DL 3.6- 5.4 Albumin/Globulin Ratio 1.4 1-3 Alkaline Phosphatase 53 U/L 30-110 Alt (SGPT) 17 U/L 14-54 Anion Gap 4.0 mmol/L 2-11 67 Ast (Sgot) 15 U/L 12-42 BUN 14 mg/dL 6-24 BUN/Creatinine Ratio 15.6 8-20 Bilirubin Total 0.9 mg/dL 0.4-1.5 68 Calcium 8.5 mg/dL 8.1-9.9 Chloride 108 mmol/L 101-111 Co2 (Carbon Dioxide) 25.0 mmol/L 22-32 Creatinine 0.9 mg/dL 0.50-1.40 Globulin 2.6 GM/DL 2-4 Glucose 97 mg/dL 70-100 One Over Creatinine 1.11 Potassium 4.3 mmol/L 3.5-5.0 Sodium 137 mmol/L 135-145 Total Protein 6.3 GM/DL 6.2-8.1 eGFR 88.3 > 60 69 eGFR Non- 68.7 > 60 Lipid Profile 10/29/2011 N2N/CCD Import Cholesterol 144 mg/dL Less Than 70 (Trig/Chol/HDL) 200 Cholesterol/HDL Ratio 3.06 AVERAGE 1-4.44 High Density Lipoprotein 47 mg/dL 40-60 71 Low Density Lipoprotein 85 mg/dL Less Than 100 72 Triglyceride 59 mg/dL 40-200 Liver Function Panel 10/29/2011 N2N/CCD Import Bilirubin Direct 0.1 mg/dL 0.1-0.5 Indirect Bilirubin 0.8 mg/dL 0.3-1.0 73 Manual Differential 10/29/2011 N2N/CCD Import Absolute Neutrophil Count 10.20 Basophil 1 % 0-2 Eosinophil 1 % 0-6 Lymphocyte 13 % Low 25-47 Monocyte 3 % 0-13 Polysegmented Neutrophil 82 % 38-83 RBC Morphology Normal Laboratory test 10/29/2011 N2N/CCD Import Antinuclear AB Negative Negative finding Endomysial Abs Negative Negative 74 Erythrocyte Sed Rate 13 MM/HR 0-15 Gliadin Iga 10.6 U () 75 Gliadin Igg <10.0 U () 76 Hemoglobin A1c 5.7 % Less Than 6.0 77 Reticulin AB Negative Negative 78 Rheumatoid Factor < 15 Iu/ml <15 79 Uric Acid 4.4 mg/dL 2.6-7.2 Laboratory test 10/21/2011 [facility] Skin Biopsy See Note 80 finding [address] [place] [address] [phone] Laboratory test 10/15/2011 N2N/CCD Import Throat-Beta 81 finding Strep Culture --- <See Note> Routine Culture W/ 08/19/2011 [facility] Routine Culture See Note 82 Gram Stain [address] [facility] W/ [place] [address] [phone] Gram Stain See Note 83 Aerobic Culture See Note 84 Manual Differential 06/11/2011 N2N/CCD Import Absolute Neutrophil Count 7.5 Anisocytosis Slight Lymphocyte 35 % 25-47 Monocyte 3 % 0-13 Polysegmented Neutrophil 62 % 38-83 Liver Function Panel 06/11/2011 N2N/CCD Import Bilirubin Direct 0.1 mg/dL 0.1-0.5 Indirect Bilirubin 0.5 mg/dL 0.3-1.0 85 Lipid Profile 06/11/2011 N2N/CCD Import Cholesterol 189 mg/dL Less Than 86 (Trig/Chol/HDL) 200 Cholesterol/HDL Ratio 3.50 AVERAGE 1-4.44 High Density Lipoprotein 54 mg/dL 40-60 87 Low Density Lipoprotein 120 mg/dL High Less Than 100 88 Triglyceride 75 mg/dL 40-200 Comp Metabolic Panel 06/11/2011 N2N/CCD Import Albumin 4.2 GM/DL 3.6- 5.4 Albumin/Globulin Ratio 1.6 1-3 Alkaline Phosphatase 59 U/L 30-110 Alt (SGPT) 16 U/L 14-54 Anion Gap 9.0 mmol/L 2-11 89 Ast (Sgot) 15 U/L 12-42 BUN 13 mg/dL 6-24 BUN/Creatinine Ratio 16.3 8-20 Bilirubin Total 0.6 mg/dL 0.4-1.5 90 Calcium 9.3 mg/dL 8.1-9.9 Chloride 103 mmol/L 101-111 Co2 (Carbon Dioxide) 28.0 mmol/L 22-32 Creatinine 0.8 mg/dL 0.50-1.40 Globulin 2.7 GM/DL 2-4 Glucose 86 mg/dL 70-100 One Over Creatinine 1.25 Potassium 4.5 mmol/L 3.5-5.0 Sodium 140 mmol/L 135-145 Total Protein 6.9 GM/DL 6.2-8.1 eGFR 101.2 > 60 91 eGFR Non- 78.7 > 60 CBC Auto Diff 06/11/2011 N2N/CCD Import Hematocrit 47 % 35-47 Hemoglobin 15.7 g/dL 12.0-16.0 Mean Corpuscular HGB Cone 33 g/dL 32-36 Mean Corpuscular Hemoglob 31 pg 27-31 Mean Corpuscular Volume 94 um3 79-97 Mean Platelet Volume 9.8 um3 7.4-10.4 92 Platelet Count 314 CUMM 150-450 Red Cell Count 5.01 CUMM 4.2-5.4 Redcell Distribution WDTH 13 % 10.5-15 White Blood Count 12.2 CUMM High 4.8-10.8 Laboratory test 06/11/2011 N2N/CCD Import Antinuclear AB Negative Negative finding Erythrocyte Sed Rate 20 MM/HR High 0-15 Rheumatoid Factor < 15 Iu/ml <15 93 TSH 3.52 MIU/ML 0.34-5.60 Uric Acid 4.1 mg/dL 2.6-7.2 Routine Culture W/ Gram 05/29/2010 [facility] Gram Stain See Note 94 Stain [address] [place] [address] [phone] Aerobic Culture See Note 95 1 Z12.31, Z02.9 LAB ORDER NOT HERE AT PRE 2 K29.70,L40.50,E55.9,E66.09,D17.71,Z79.899 3 Vitamin D deficiency has been defined by the [place] of [employer] and an Endocrine Society practice guideline as a level of serum 25-OH vitamin D less than 20 ng/mL (1,2). The Endocrine Society went on to further define vitamin D insufficiency as a level between 21 and 29 ng/mL (2). 1. IOM ([place] of [employer]). 2010. Dietary reference intakes for calcium and D. [place]: The National Academies Press. 2. Tisha MF, Xavier NC, Rena LARA, et al. Evaluation, treatment, and prevention of vitamin D deficiency: an Endocrine Society clinical practice guideline. JCEM. 2010; 96(7):1911-30. Performed at: RN - [facility] [address] [id number] Wrapper Sorter: Kelly Vale MD, Phone: [phone] 4 Reference Guidelines*: Desirable: ........... < 200 mg/dL Borderline High: ..... 200-239 mg/dL High: ................ >=240 mg/dL * The National Cholesterol Education Program (NCEP) 5 Reference Guidelines*: Normal: ............. < 150 mg/dL Borderline High: .... 150-199 mg/dL High: ............... 200-499 mg/dL Very High: .......... > 500 mg/dL * Source: National Cholesterol Education Program (NCEP) 6 Reference Guidelines*: Low HDL: ..... < 40 mg/dL Normal: ..... 40-60 mg/dL Desirable: ... > 60 mg/dL *The National Cholesterol Education Program(NCEP) 7 Reference Guidelines*: Optimal:........... <100 mg/dL Near Optimal....... 100-129 mg/dL Borderline High.... 130-159 mg/dL High............... 160-189 mg/dL Very High.......... >=190 mg/dL * Source: National Cholesterol Education Program (NCEP) 8 Elevated levels of HbA1c suggest the need for more aggressive treatment of glycemia. The [place] [employer] recommends that a primary goal of therapy should be a HbA1c of <7% and that physicians should re-evaluate the treatment regimen in patients with HbA1c values consistently >8%. 9 Note: Persistent reduction for 3 months or more in an eGFR <60 mL/min/1.73 m2 defines CKD. Patients with eGFR values >/=60 mL/min/1.73 m2 may also have CKD if evidence of persistent proteinuria is present. The original MDRD equation for estimated GFR is not valid for patients less than 18 years of age. Additional information may be found at www.kdoqi.org. 10 Values below the stated reference ranges of AST and ALT can be seen in normal populations. Clinical correlation is suggested. 11 Instrument flagged sample for slide review. Less than 10% Bands seen, no other immature WBC's seen. RBC morphology essentially normal. Platelet estimate=NORMAL 12 R19.7 13 Results for this test are for research purposes only by the assay's oracle developer. The performance characteristics of this product have not been established. Results should not be used as a diagnostic procedure without confirmation of the diagnosis by another medically established diagnostic product or procedure. Performed at: [address] [id number] Wrapper Sorter: Daniel Taylor MD, Phone: [phone] 14 Note: Persistent reduction for 3 months or more in an eGFR <60 mL/min/1.73 m2 defines CKD. Patients with eGFR values >/=60 mL/min/1.73 m2 may also have CKD if evidence of persistent proteinuria is present. The original MDRD equation for estimated GFR is not valid for patients less than 18 years of age. Additional information may be found at www.kdoqi.org. 15 This test was developed and its performance characteristics determined by [employer]. It has not been cleared or approved by the Food and Drug Administration. Performed at: [address] [id number] Wrapper Sorter: Daniel Taylor MD, Phone: [phone] 16 R10.970 W91.903 17 Lavinia ECLIA methodology Values obtained with different assay methods or kits cannot be used interchangeably. Results cannot be interpreted as absolute evidence of the presence or absence of malignant disease. Performed at: [address] [id number] Wrapper Sorter: Kelly Vale MD, Phone: [phone] 18 Lavinia ECLIA methodology Values obtained with different assay methods or kits cannot be used interchangeably. Results cannot be interpreted as absolute evidence of the presence or absence of malignant disease. 19 Non-smokers ..... 0.0-3.0 ng/mL Smokers ......... 0.0-5.0 ng/mL THIS ASSAY IS NOT INTENDED A CANCER SCREENING TEST The concentration of CEA in a given specimen, determined with assays from different manufacturers, can vary due to differences in assay methods and reagent specificity. Values obtained from different assay methods cannot be used interchangeably. Method: Siemens [employer] [place] Chemiluminescent Immunoassay 20 R19.7 21 INFCE Result Units: ug Elast./g Results verified by repeat testing Severe Pancreatic Insufficiency: <100 Moderate Pancreatic Insufficiency: 100 - 200 Normal: >200 Performed at: [address] [id number] Wrapper Sorter: Daniel Taylor MD, Phone: [phone] 22 Concentration Interpretation Follow-Up <16 - 50 ug/g Normal None >50 -120 ug/g Borderline Re-evaluate in 4-6 weeks >120 ug/g Abnormal Repeat as clinically indicated 23 Baseline (normal) 0.00 - 7.24 Elevated >7.24 An elevated result is indicative of the presence of fecal lactoferrin, a marker of intestinal inflammation. A normal result does not exclude the presence of intestinal inflammation. The test can be used as an in vitro diagnostic aid to distinguish patients with active inflammatory bowel disease (IBD) from those with non-inflammatory irritable bowel syndrome (IBS). Performed at: [facility] [id number] Wrapper Sorter: Daniel Taylor MD, Phone: [phone] 24 NEGATIVE FOR C. DIFFICILE TOXIN A/B. CORRELATE RESULTS WITH CLINICAL CONDITION. 25 NO OVA AND PARASITES SEEN BY CONCENTRATE EXAM 26 NO OVA OR PARASITES SEEN ON PERMANENT TRICHROME STAIN 27 NEGATIVE for Cryptosporidium by DFA Testing Performed by: [facility] [place] [address] 28 NO ENTERIC PATHOGENS ISOLATED 29 ................................................... 30 INCLUDES TESTING FOR SALMONELLA, SHIGELLA, AEROMONAS, 31 PLESIOMONAS, CAMPYLOBACTER, AND E. COLI 0157:H7 32 ................................................... 33 YERSINIA AND VIBRIO ARE NOT ROUTINELY SCREENED FOR AND 34 SHOULD BE REQUESTED SEPARATELY 35 SHIGA TOXIN 1 NOT DETECTED 36 SHIGA TOXIN 2 NOT DETECTED 37 Normal (<60 Droplets/HPF) 38 Normal (<100 Droplets/HPF) Performed at: - [facility] [id number] Wrapper Sorter: Kelly Vale MD, Phone: [phone] 39 D89.60 40 Instrument flagged sample for slide review. No Bands seen, rare atypical lymphocyte seen. RBC morphology essentially normal. Platelet estimate=normal 41 Vitamin D deficiency has been defined by the [place] of [employer] and an Endocrine Society practice guideline as a level of serum 25-OH vitamin D less than 20 ng/mL (1,2). The Endocrine Society went on to further define vitamin D insufficiency as a level between 21 and 29 ng/mL (2). 1. IOM ([place] [employer]). 2010. Dietary reference intakes for calcium and D. [place]: The National Academies Press. 2. Tisha MF, Xavier SONI, Rena LARA, et al. Evaluation, treatment, and prevention of vitamin D deficiency: an Endocrine Society clinical practice guideline. JCEM. 2010; 96(7):1911-30. Performed at: [address] [id number] Wrapper Sorter: Kelly Vale MD, Phone: [phone] 42 Negative <20 Weak positive 20 - 39 Moderate positive 40 - 59 Strong positive >59 43 Performed at: [address] [id number] Wrapper Sorter: Daniel Taylor MD, Phone: [phone] Performed at: [address] [id number] Wrapper Sorter: Kelly Vale MD, Phone: [phone] 44 Note: Persistent reduction for 3 months or more in an eGFR <60 mL/min/1.73 m2 defines CKD. Patients with eGFR values >/=60 mL/min/1.73 m2 may also have CKD if evidence of persistent proteinuria is present. The original MDRD equation for estimated GFR is not valid for patients less than 18 years of age. Additional information may be found at www.kdoqi.org. 45 Values below the stated reference ranges of AST and ALT can be seen in normal populations. Clinical correlation is suggested. 46 QUERY: Is Patient Fasting? N 47 Negative <0.9 Indeterminate 0.9 - 1.0 Positive >1.0 48 Negative <9.0 Equivocal 9.0 - 11.0 Positive >11.0 49 Negative <9.0 Equivocal 9.0 - 11.0 Positive >11.0 This test was developed and its performance characteristics determined by [employer]. It has not been cleared or approved by the Food and Drug Administration. Results of this test are for investigational purposes only. The result should not be used as a diagnostic procedure without confirmation of the diagnosis by another medically diagnostic product or procedure. Performed at: [address] [id number] Wrapper Sorter: Kelly Vale MD, Phone: [phone] 50 This is a corrected report. Any previous versions are stored internally and are available if necessary. OPERATION/PROCEDURE Laparoscopic cholecystectomy. DIAGNOSIS: "GALLBLADDER, CHOLECYSTECTOMY": - CHRONIC CHOLECYSTITIS WITH CHOLESTEROLOSIS. [facility] 1049 GROSS Received in formalin in a properly labeled container with the patient's name and accession number designated, "GALLBLADDER". The specimen consists of a 7.0 x 3.2 x 1.5 cm. gallbladder. The outside surface is green and smooth. Opening reveals green bile. The mucosa is green and velvety with gold flakes. Maximum wall thickness is 0.2 cm. Director Of Exhibit Development sections in one cassette. [facility] PRE OPERATIVE DIAGNOSIS Acute cholecystitis REVIEW CODE CODE: I Signed Electronically signed José MARTINEZ MD [id number] OPERATION/PROCEDURE Excision DIAGNOSIS: "SKIN, LEFT EYELID, BIOPSY": - BASAL CELL CARCINOMA, SUPERFICIAL AND NODULAR TYPE; SEE COMMENT. JALEN/fabio 1419 INTERPRETATION COMMENT The lesion is narrowly excised in the planes of sectioning examined. GROSS The specimen is received in formalin in a properly labeled container with the patient's name and accession number. The specimen is designated as "LEFT EYELID LESION" and consists of a 0.6 x 0.4 x 0.2 cm. piece of anthony soft rubbery tissue. The specimen is inked, bisected and submitted in one cassette. VALERIE/fabio PRE OPERATIVE DIAGNOSIS Left eyelid lesion, medial canthus REVIEW CODE CODE: I Signed Electronically signed José MARTINEZ MD [id number] 04/27/15 (Thr Apr 27) 01:41 PM PATEL CAZARES reviewed notes with pathologist and with patient - as margins clear, will follow over time - letter sent to dr vail as pt would like to follow at her office 53 Negative <0.91 Equivocal 0.91 - 1.09 Positive >1.09 Note: The CDC currently advises that Western blot testing be performed following all equivocal or positive EIA results. Final diagnosis should include appropriate clinical findings and a positive EIA which is also positive by Western blot. Performed at: [facility] [email or web address] [id number] Wrapper Sorter: Kelly Vale MD, Phone: [phone] Negative <5 Equivocal 5 - 9 Positive >9 55 Note: Persistent reduction for 3 months or more in an eGFR <60 mL/min/1.73 m2 defines CKD. Patients with eGFR values >/=60 mL/min/1.73 m2 may also have CKD if evidence of persistent proteinuria is present. The original MDRD equation for estimated GFR is not valid for patients less than 18 years of age. Additional information may be found at www.kdoqi.org. 56 Negative <5 Equivocal 5 - 9 Positive >9 57 Performed at: RN - [facility] [address] [id number] Wrapper Sorter: Kelly Vale MD, Phone: [phone] 58 -- REFERENCE VALUE -- Not Applicable 59 -- REFERENCE VALUE -- <20.0 (Negative) Test Performed by: [address] [address] Seed Cleaner: Scooter Carr III, M.D. 60 -- REFERENCE VALUE -- Not Applicable 61 Test Performed by: [address] [address] Seed Cleaner: Scooter Carr III, M.D. 62 Anion gap measurement may be of limited value in the presence of any alkalosis, especially in a combined acid base disorder. . 63 A metabolite of Naproxen, O-desmethylnaproxen, has been shown to interfere with the Jendrarielaik-Tesuque method for measuring total bilirubin. Samples from patients who have taken Naproxen have shown spurious elevation in total bilirubin levels. 64 Because ethnic data is not always readily available, this report includes an eGFR for both -Americans and non- Americans. The National Kidney Disease Education Program (NKDEP) does not endorse the use of the MDRD equation for patients that are not between the ages of 18 and 70, are , have extremes of body size, muscle mass, or nutritional status, or are non- or non-. According to the National Kidney Foundation, irrespective of diagnosis, the stage of the disease is based on the level of kidney function: Stage Description GFR(mL/min/1.73 m(2)) 1 Kidney damage with normal or decreased GFR 90 2 Kidney damage with mild decrease in GFR 60-89 3 Moderate decrease in GFR 30-59 4 Severe decrease in GFR 15-29 5 Kidney failure <15 (or dialysis) 65 THERAPEUTIC TARGET FOR THE TREATMENT OF DIABETES MELLITUS PATIENTS IS <7% HBA1C, AND IN SELECTIVE PATIENTS <6.0%. PLEASE REFER TO [place] [employer] DIABETIC CARE GUIDELINES FOR FURTHER INFORMATION. 66 Lymphopenia % 67 Anion gap measurement may be of limited value in the presence of any alkalosis, especially in a combined acid base disorder. . 68 A metabolite of Naproxen, O-desmethylnaproxen, has been shown to interfere with the Jendrassik-Tesuque method for measuring total bilirubin. Samples from patients who have taken Naproxen have shown spurious elevation in total bilirubin levels. 69 Because ethnic data is not always readily available, this report includes an eGFR for both -Americans and non- Americans. The National Kidney Disease Education Program (NKDEP) does not endorse the use of the MDRD equation for patients that are not between the ages of 18 and 70, are , have extremes of body size, muscle mass, or nutritional status, or are non- or non-. According to the National Kidney Foundation, irrespective of diagnosis, the stage of the disease is based on the level of kidney function: Stage Description GFR(mL/min/1.73 m(2)) 1 Kidney damage with normal or decreased GFR 90 2 Kidney damage with mild decrease in GFR 60- 89 3 Moderate decrease in GFR 30-59 4 Severe decrease in GFR 15-29 5 Kidney failure <15 (or dialysis) 70 CHOLESTEROL INTERPRETATION: Desirable: Less than 200 MG/DL Borderline-High Risk: 200-239 MG/DL High-Risk: 240 MG/DL and over 71 HDL INTERPRETATION: Undesirable: High Risk: Less than 40 MG/DL Desirable: Low Risk: Greater than 60 MG/DL 72 LDL INTERPRETATION: Low Risk Optimal Level: LDL Less than 100 MG/DL Near or Above Optimal: LDL 100-129 MG/DL Borderline High Risk: LDL 130-159 MG/DL High Risk : LDL 160-189 MG/DL Very High Risk: LDL Greater than 189 MG/DL 73 Please note updated reference range, effective 01/18/10 74 Negative in normal Individuals. May be negative in dermatitis herpatiformis or celiac disease patients adhering to a gluten free diet. Laboratory developed test. Test Performed by: [facility] [address] [place] [address] Seed Cleaner: Scooter Carr III, M.D. 75 -- REFERENCE VALUE -- <20.0 (Negative) Test Performed by: [facility] [address] [place] [address] Seed Cleaner: Scooter Carr III, M.D. 76 -- REFERENCE VALUE -- <20.0 (Negative) Test Performed by: [facility] [address] [place] [address] Seed Cleaner: Scooter Carr III, M.D. 77 THERAPEUTIC TARGET FOR THE TREATMENT OF DIABETES MELLITUS PATIENTS IS <7% HBA1C, AND IN SELECTIVE PATIENTS <6.0%. PLEASE REFER TO [place] [employer] DIABETIC CARE GUIDELINES FOR FURTHER INFORMATION. 78 Test Performed by: [facility] [address] [place] [address] Seed Cleaner: Scooter Carr III, M.D. 79 Test Performed by: [facility] [address] [place] [address] Seed Cleaner: Scooter Carr III, M.D. 80 OPERATION/PROCEDURE Biopsy DIAGNOSIS: "SKIN, LEFT LOWER LEG, BIOPSY": SKIN WITH ACANTHOSIS, SPONGIOSIS, SUPERFICIAL DIFFUSE LYMPHOCYTIC INFILTRATE AND FIBROSIS, SEE COMMENT. 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 Lack of neutrophilic infiltrate is not supportive for palisaded neutrophilic and granulomatous dermatitis, although degenerated collagen is seen focally. Other conditions with similar findings include granuloma annulare and rheumatoid nodule. However, these two are less likely due to lack of definitive granulomatous changes. Clinical correlation is recommended. GROSS The specimen is received in a single container additionally labeled, "LEFT LOWER LEG". This is a 0.2 cm. punch biopsy of skin to a depth of 0.3 cm. Submitted without further sectioning between two sponges within a single cassette. WS/clf MICROSCOPIC Sections show skin with compact keratosis, parakeratosis, acanthosis, hypergranulosis, mild spongiosis and superficial diffuse and perivascular lymphocytic infiltrate. Fibrosis horizontal to skin surface is seen. Focally there are mucin like material between collagen bundles. There is no definitive evidence of granulomatous changes. Mucicarmine stain is negative. Controls are adequate. PRE OPERATIVE DIAGNOSIS Skin rash on left lower leg. REVIEW CODE CODE: I Signed MILAD SINGLETARY MD [id number] ------- RUN DATE: 10/17/11 [facility] NMI LIVE PAGE 1 RUN TIME: 813 Specimen Inquiry RUN USER: INTERFACE ----- Name: KAMLA ESPINAL Accashley#: [id number] Status: REG REF Re10/15/11 Age/Sex: 40/F Unit#: [id number] Location: [facility] : 66 ----- SPEC #: [id number] WARREN: 10/15/11-1229 STATUS: COMP REQ #: [id number] RECD: 10/15/[address] [facility] DR: Lucretia Mtz MD SOURCE: THROAT ENTR: 10/15/[address]: EZEQUIEL: ORDERED: THROAT-BETA STR QUERIES: MEDENT REQUISITION # [id number] ACT WKST: BS 10/17/11 #1 ----- Procedure Result Verified Site ----- > THROAT-BETA STREP CULTURE Final 10/17/11-813 ML NEGATIVE FOR GROUP A BETA STREPTOCOCCUS ----- ML - [facility] Permit #[id number] [address] [place] [address] ----- DEPARTMENT OF PATHOLOGY, [address] [place] [address], [place] [address] [facility] Permit #[id number] Aman Rosa M.D. Director Estiven Shipman M.D. Box Toe Flanger [employer] ----- 82 CULTURE IN PROGRESS 83 GRAM STAIN ! FEW WHITE BLOOD CELLS ! MANY GRAM POSITIVE COCCI ! MANY GRAM NEGATIVE BACILLI 84 Organism 1 ! NO PATHOGENS ISOLATED 85 Please note updated reference range, effective 01/18/10 86 CHOLESTEROL INTERPRETATION: Desirable: Less than 200 MG/DL Borderline-High Risk: 200-239 MG/DL High-Risk: 240 MG/DL and over 87 HDL INTERPRETATION: Undesirable: High Risk: Less than 40 MG/DL Desirable: Low Risk: Greater than 60 MG/DL 88 LDL INTERPRETATION: Low Risk Optimal Level: LDL Less than 100 MG/DL Near or Above Optimal: LDL 100-129 MG/DL Borderline High Risk: LDL 130-159 MG/DL High Risk : LDL 160-189 MG/DL Very High Risk: LDL Greater than 189 MG/DL 89 Anion gap measurement may be of limited value in the presence of any alkalosis, especially in a combined acid base disorder. . 90 A metabolite of Naproxen, O-desmethylnaproxen, has been shown to interfere with the Jendrassik-Tesuque method for measuring total bilirubin. Samples from patients who have taken Naproxen have shown spurious elevation in total bilirubin levels. 91 Because ethnic data is not always readily available, this report includes an eGFR for both -Americans and non- Americans. The National Kidney Disease Education Program (NKDEP) does not endorse the use of the MDRD equation for patients that are not between the ages of 18 and 70, are , have extremes of body size, muscle mass, or nutritional status, or are non- or non-. According to the National Kidney Foundation, irrespective of diagnosis, the stage of the disease is based on the level of kidney function: Stage Description GFR(mL/min/1.73 m(2)) 1 Kidney damage with normal or decreased GFR 90 2 Kidney damage with mild decrease in GFR 60- 89 3 Moderate decrease in GFR 30-59 4 Severe decrease in GFR 15-29 5 Kidney failure <15 (or dialysis) 92 Lymphopenia % 93 Test Performed by: [facility] [address] [place] [address] Seed Cleaner: Scooter Carr III, M.D. 94 GRAM STAIN ! MANY GRAM NEGATIVE BACILLI ! FEW GRAM POSITIVE COCCI 95 Organism 1 ! NO PATHOGENS ISOLATED Procedures Date Code Description Status 06/22/2018 [id number] Mammogram Completed 06/11/2018 35376 EKG-Tracing And Report Completed 04/13/2018 73837 Exc Benign Lesion Over 4.0 CM Completed 09/05/2017 89424 Asp./Injection major joint Completed 08/20/2017 60363 Radiology, Shoulder: Two Views (Sso) Completed 05/27/2017 [id number] Colonoscopy Completed 05/27/2017 17437 Colonoscopy With Biopsy Completed 05/27/2017 76856 EGD With Biopsy Completed 12/18/2016 79797 Eye Exam Est Patient Comprehensive Completed 11/06/2016 34626 Pessary Insertion And Fitting Completed 11/06/2016 99226 Destruct-Skin Tags/Lesions-Local Anesthesia- 2-14 Completed Lesions 11/06/2016 88439 Destruct-Skin Tags/Lesions-Local Anesthesia - First Completed Lesion 05/06/2016 41417 I & D Of Abscess/Simple Or Single Completed 02/12/2016 [id number] Mammogram Completed 10/12/2015 [id number] Mammogram Completed 04/07/2015 67816 Exc Of Les.Of Eyelid W/O Closure Or With A Simple Completed Direct Closure 02/10/2015 [id number] Mammogram Completed 01/10/2015 29409 Visual Field Exam Extended, Unilateral Or Bilateral Completed 07/28/2014 06979 Epidural Subarachnoid Injection Lumbar Sacral Completed 07/12/2014 79875 Radiology, L-S Spine Complete Completed 07/12/2014 35258 Radiology, L-S Spine Complete Completed 04/26/201416969 Aspiration/Injection joint Completed intermediate(wrist/ankle/elbow/olbursa 04/26/2014 Aspiration/Injection joint Completed intermediate(wrist/ankle/elbow/olbursa 04/26/2014 Aspiration/Injection joint Completed intermediate(wrist/ankle/elbow/olbursa 01/21/2014 [id number] Mammogram Completed 12/03/2013 88279 Radiology, Foot, Complete-3 Views Completed 11/25/2013 17733 Event Monitor Inter/Review Only Completed 10/07/2013 79688 Radiology, Elbow Complete Completed 10/07/2013 96343 Radiology, Elbow Complete Completed 09/10/2013 Aspiration/Injection joint Completed intermediate(wrist/ankle/elbow/olbursa 05/07/2013 Aspiration/Injection joint Completed intermediate(wrist/ankle/elbow/olbursa 01/12/2013 [id number] Mammogram Completed 12/04/2012 Aspiration/Injection joint Completed intermediate(wrist/ankle/elbow/olbursa 01/10/2012 [id number] Mammogram Completed 10/21/2011 93867 Biopsy Skin Lesion Completed 08/19/2011 61726 I & D Of Abscess/Simple Or Single Completed 03/29/2011 25197 I & D Of Abscess/Simple Or Single Completed 12/07/2010 [id number] Mammogram Completed 10/18/2010 00621 Radiology, Elbow Complete Completed 05/01/2010 25254 I & D Of Abscess/Simple Or Single Completed 04/25/2009 61073 Stress Test Interpre And Report Only Completed 04/25/2009 80520 Stress Test Physician Super Only Completed Encounters Type Date Location Provider Dx Diagnosis Office Visit 06/11/2018 Primary Care Carissa Red MD R55 Syncope and 4:15p Office collapse Office Visit 04/02/2018 Primary Care Carissa Red MD Z00.00 Encntr for general 8:40a Office adult medical exam w/o abnormal findings N39.3 Stress incontinence (female) (male) M43.06 Spondylolysis, lumbar region K58.0 Irritable bowel syndrome with diarrhea L40.50 Arthropathic psoriasis, 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 Z23 Encounter for immunization Office Visit 10/01/2017 1:00p Orthopaedic Kaylyn, M75.42 Impingement Office MD Jessica syndrome of left shoulder M75.112 Incomplete rotatr-cuff tear/ruptr of l shoulder, not trauma Office Visit 08/21/2017 10:15a Orthopaedic Guilherme Patiño75.42 Impingement Office MD Jessica syndrome of left shoulder M75.112 Incomplete rotatr-cuff tear/ruptr of l shoulder, not trauma Office Visit 08/20/2017 9:00a Orthopaedic Guilherme Patiño75.42 Impingement Office MD Jessica syndrome of left shoulder Office Visit 05/06/2017 4:00p Urology Eve, N20.0 Calculus of Dennis Stone kidney 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 N39.3 Stress incontinence (female) (male) Office Visit 04/25/2017 3:30p PERLA Donaldson MD R19.7 Diarrhea, unspecified R11.2 Nausea with vomiting, unspecified R12 Heartburn Office Visit 03/20/2017 2:00p Primary Care Teofilo I82.1 Thrombophlebitis Office MD Carissa migrans K58.0 Irritable bowel syndrome with diarrhea M43.06 Spondylolysis, lumbar region R92.8 Oth abn and inconclusive findings on dx imaging of breast N39.46 Mixed incontinence Office Visit 09/04/2016 3:15p PERLA Donaldson MD K58.0 Irritable bowel syndrome with diarrhea R10.816 Epigastric abdominal tenderness R12 Heartburn Office Visit 08/28/2016 Family Francie, A63.0 Anogenital (venereal) 1:00p Dennis Collins Main Office Visit 08/23/2016 Primary Care Carissa Red, N90.89 Oth noninflammatory 2:00p Office disorders of vulva and perineum Office Visit 07/17/2016 Primary Care Carissa Red, R53.82 Chronic fatigue , 11:20a Office unspecified K58.0 Irritable bowel syndrome with diarrhea M43.06 Spondylolysis, lumbar region R63.5 Abnormal weight gain Office Visit 05/10/2016 8:00a PERLA Donaldson MD R19.7 Diarrhea, unspecified R10.816 Epigastric abdominal tenderness R12 Heartburn Office Visit 02/22/2016 1:20p Primary Care Teofilo 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, lumbar region R53.82 Chronic fatigue, unspecified F41.9 Anxiety disorder, unspecified G47.00 Insomnia, unspecified F17.210 Nicotine dependence, cigarettes, uncomplicated K58.0 Irritable bowel syndrome with diarrhea Office Visit 03/03/2015 8:15a Orthopaedic Office Cyndi Cerrato 719.47 Pain Joint S., RPAC Ankle & Foot 845.11 Sprains & Strains Foot Tarsometatarsal (Joint) (Ligament) Office Visit 12/27/2014 Orthopaedic Blossom 726.32 Epicondylitis 2:15p Office Cyndi Encinas, Lateral RPAC V54.89 Aftercare, Orthopedic Other Office Visit 07/25/2014 1:30p Surgical Office Harris Rasmussen MD 724.2 Lumbago Office Visit 07/12/2014 1:15p Orthopaedic Office Cyndi Cerrato, 724.3 Sciatica RPAC 728.85 Spasm Muscle 724.2 Lumbago Office Visit 12/03/2013 Orthopaedic Blossom 726.32 Epicondylitis 8:15a Office Cyndi SMonique, Lateral RPAC 719.42 Pain Joint Upper Arm Office Visit 10/07/2013 Orthopaedic Blossom 726.32 Epicondylitis 3:15p Office Cyndi SMonique, Lateral RPAC 719.42 Pain Joint Upper Arm 719.42 Pain Joint Upper Arm Office Visit 05/07/2013 Surgical Office Cara 726.32 Epicondylitis 3:45p Delma Brown M.D. Office Visit 12/04/2012 Surgical Office Eloy Hernandez MD 726.32 Epicondylitis 3:00p Lateral Office Visit 04/10/2012 Orthopaedic Gorge Warren 847.2 Sprains & Strains 2:10p Office MD [place] Lumbar Office Visit 10/21/2011 Surgical Office Eloy Hernandez MD 782.1 Rash & Other 2:00p Nonspec Skin Eruption Office Visit 10/18/2010 Gorge Kat 726.32 Epicondylitis 10:30a Office MD [place] Lateral Plan of Treatment Future Appointment(s):01/07/2019 8:40 am - Carissa Red MD at Primary Care Lveqjc7004/13/2018 - Refugio Marroquin M.D.D23.5 Other benign neoplasm of skin of trunk
[2018-10-28 21:07] VITALS: BP 112/74
[2018-10-28] MEDS ORDERED: Albuterol/Ipratropium NEB.SOL* Albuterol 2.5 MG/Ipratropium 0.5 MG 3 ML INH ONE (21:17)
--- NOTE | 2018-10-28 21:20 | UC ---
Respiratory Complaint HPI - HPI Summary HPI Summary: Patient has had head congestion and cold symptoms since Friday. She states she thinks she has a sinus infection. She is a smoker. No history of COPD states she has exercise-induced asthma. - History of Current Complaint Chief Complaint: UCGeneralIllness Stated Complaint: SINUS CONGESTION CHEST PRESSURE Time Seen by Provider: 10/28/18 21:00 Hx Obtained From: Patient ?: No Onset/Duration: Gradual Onset Timing: Intermittent Episodes Severity Initially: Mild Severity Currently: Mild Pain Intensity: 0 Character: Cough: Productive Aggravating Factors: Nothing Alleviating Factors: Nothing Associated Signs And Symptoms: Positive: Wheezing, URI, Nasal Congestion, Sinus Discomfort - Allergies/Home Medications Allergies/Adverse Reactions: Allergies Allergy/AdvReac Type Severity Reaction Status Date / Time acetaminophen [From NyQuil] Allergy Vomiting Verified 10/28/18 21:01 dextromethorphan Allergy Vomiting Verified 10/28/18 21:01 [From NyQuil] doxycycline Allergy Vomiting Verified 10/28/18 21:01 doxylamine [From NyQuil] Allergy Vomiting Verified 10/28/18 21:01 lemon Allergy Hives Verified 10/28/18 21:01 pseudoephedrine [From NyQuil] Allergy Vomiting Verified 10/28/18 21:01 Home Medications: Home Medications Methotrexate TAB* 6 tab PO WEEKLY 10/28/18 [History Confirmed 10/28/18] celeCOXIB CAP* [CeleBREX CAP*] 200 mg PO DAILY 10/28/18 [History Confirmed 10/28] oxyCODONE TAB* [Roxycodone TAB 5 mg*] 5 mg PO Q4H PRN 10/28/18 [History Confirmed 10/28/18] PMH/Surg Hx/FS Hx/Imm Hx Previously Healthy: Yes Respiratory History: Asthma - Exercise-induced asthma - Surgical History Surgical History: Yes Surgery Procedure, Year, and Place: Appendectomy 1981 [place]; Tubal Ligation 1999 [place]; Hyster 2006 [place];Cataracts 2008 [place]; Left Breast Biopsy 1999 [place]; Cholecystectomy 2015 [place] - Family History Known Family History: Positive: Non-Contributory - Social History Alcohol Use: Rare Substance Use Type: None Smoking Status (MU): Current Every Day Smoker Type: Cigarettes Amount Used/How Often: 1/2 PPD Have You Smoked in the Last Year: Yes Review of Systems All Other Systems Reviewed And Are Negative: Yes ENT: Positive: Nasal Discharge, Sinus Congestion, Sinus Pain/Tenderness Respiratory: Positive: Cough - Tight, moist cough. Is Patient Immunocompromised?: No Physical Exam Triage Information Reviewed: Yes Appearance: Well-Appearing, No Pain Distress, Well-Nourished Vital Signs: Initial Vital Signs Temp 97.3 F 10/28/18 21:04 Pulse 76 10/28/18 21:04 Resp 19 10/28/18 21:04 BP 112/74 10/28/18 21:04 Pulse Ox 98 10/28/18 21:04 Vital Signs Reviewed: Yes Eyes: Positive: Conjunctiva Clear ENT: Positive: Hearing grossly normal, Pharynx normal, Nasal congestion, Nasal drainage, TMs normal, Sinus tenderness, Uvula midline Neck: Positive: Supple, Nontender, No Lymphadenopathy Respiratory: Positive: No accessory muscle use, Respiratory distress, Rhonchi - Scattered rhonchi., Wheezing - Mild wheezing with forced expiration. Cardiovascular: Positive: RRR, No Murmur, Pulses Normal, Brisk Capillary Refill Musculoskeletal Exam: Normal Neurological Exam: Normal Psychological Exam: Normal Skin Exam: Normal Respiratory Course/Dx - Course Course Of Treatment: Patient was given a DuoNeb treatment and she felt much better and felt like she was moving air better. The patient was given 40 mg of prednisone here and to continue that daily for 4 more days. She was given Zithromax 500 mg here and to continue that at 250 mg daily for 4 more days. She is to follow-up with her primary care provider on Friday if no improvement. I encouraged her to stop smoking. - Differential Dx/Diagnosis Provider Diagnosis: Bronchitis Discharge - Sign-Out/Discharge Documenting (check all that apply): Patient Departure All imaging exams completed and their final reports reviewed: No Studies - Discharge Plan Condition: Fair Disposition: HOME Prescriptions: Azithromycin TAB* [Zithromax TAB (Z-EMILY) 250 mg #6 tabs] 250 mg PO DAILY 4 Days #4 tab predniSONE [Prednisone 20 MG TAB] 40 mg PO DAILY 4 Days #8 tablet Patient Education Materials: Acute Bronchitis (ED) Referrals: Craissa Red MD [Primary Care Provider] - Additional Instructions: Increase fluids, take the prednisone with food. Definite follow-up with your primary care provider if no improvement by Friday. - Billing Disposition and Condition Condition: FAIR Disposition: Home
[2018-10-28] MEDS ORDERED: Azithromycin TAB* 250 MG PO ONE (21:38)
[2018-10-28] MEDS ORDERED: predniSONE TAB* 20 MG PO ONE (21:38)
== END 2018-10-28 21:46 | disposition home or self-care (01) ==
LOC: UCCORT 20:43
DX: J45.990 Exercise induced bronchospasm (principal); R09.81 Nasal congestion; R05 Cough; Z88.6 Allergy status to analgesic agent; Z88.1 Allergy status to other antibiotic agents; Z88.8 Allergy status to other drugs, medicaments and biological substances; F17.210 Nicotine dependence, cigarettes, uncomplicated
CPT/HCPCS: 99213; A9270-GY; G0463; J7512